=== PATIENT | male | born 1930 | race Caucasian/White ===

== ENCOUNTER 2018-12-03 07:47 | Inpatient (IN) | payer MEDICARE ==
[2018-12-03] VITALS (41 sets, daily range): BP systolic 79–133; BP diastolic 35–63; Ht 170.2 cm; Wt 78.0 kg
[~2018-12-03] VITALS: Ht 170.2 cm; Wt 78.0 kg
[2018-12-03] MEDS ORDERED: FUROSEMIDE20 MG PO (07:58)
[2018-12-03] MEDS ORDERED: LISINOPRIL20 MG PO (07:58)
[2018-12-03] MEDS ORDERED: COUMADIN2 MG PO (07:58)
[2018-12-03] MEDS ORDERED: SIMBRINZA 1%-0.28 ML EACH EYE (07:59)
--- NOTE | 2018-12-03 08:19 | NUR ---
VERBAL ORDER RECEIVED FROM DR. FERNANDO TO TITRATE NOREPI INFUSION TO KEEP MAP ABOVE 65.
--- NOTE | 2018-12-03 08:58 | NUR ---
PT LYING QUIETLY, INTUBATED, ON VENT. P/W/D. VSS. PROPOFOL INFUSING, LR INFUSING ON PRESSURE BAG, NOREPINEPHRINE INFUSING. MAP 75. 1000ML TEA COLORED URINE EMPTIED FROM COLBERT BAG.
[2018-12-03 09:01] LABS: ALBUMIN 2.8 g/dL (3.4-5.0); ALKALINE PHOSPHATASE 272 U/L (46-116); ALT (SGPT) 89 U/L (10-68); BILIRUBIN - TOTAL 1.41 mg/dL (0.2-1.3); CALC OSMOLALITY 287 mosm/kg (275-300); CALCIUM 8.4 mg/dL (8.5-10.1); CARBON DIOXIDE 23.1 mmol/L (21.0-32.0); CHLORIDE - SERUM 102 mmol/L (98-107); CREATININE - SERUM 1.6 mg/dL (0.6-1.3); GLUCOSE 168 mg/dL (74-106); POTASSIUM - SERUM 3.9 mmol/L (3.5-5.1); PROTEIN - SERUM 6.6 g/dL (6.4-8.2); SODIUM 136 mmol/L (136-145); UREA NITROGEN 46 mg/dL (7-18); eGFR NON AFRICAN AMERICAN 43 mL/min (90-120)
[2018-12-03 09:03] LABS: INR 1.83 (0.85-1.17); PROTIME 20.5 SECONDS (11.6-15.0)
[2018-12-03 09:04] LABS: APTT 83.6 SECONDS (22.8-39.4)
[2018-12-03 09:09] LABS: HEMATOCRIT 29.7 % (42.0-54.0); HEMOGLOBIN 10.2 g/dL (13.5-17.5); LYMPHOCYTES 5.9 % (15-50); MCH 29.7 pg (26.0-34.0); MCHC 34.3 g/dL (31.0-37.0); MCV 86.3 fL (80.0-100.0); MEAN PLATELET VOLUME 8.8 fL (7.4-10.4); NEUTROPHILS 86.6 % (40-80); PLATELET COUNT 234 10x3/uL (130-400); RBC 3.44 10x6/uL (4.20-6.10); RDW 13.4 % (11.5-14.5); WBC 15.7 10x3/uL (4.8-10.8)
[2018-12-03 09:19] LABS: CKMB 21.4 U/L (0.0-3.6); CREATINE KINASE 147 UL (21-232)
[2018-12-03 09:21] LABS: TROPONIN-I 4.846 ng/mL (0.000-0.060)
--- NOTE | 2018-12-03 09:27 | NUR ---
LAB CALLED FOR ELEVATED TROPONIN OF 4.846, EDP NOTIFIED. EDP STATES TO CALL DR JOHNSON. DR JOHNSON NOTIFIED.
--- NOTE | 2018-12-03 10:00 | NUR ---
RECEIVED PT FROM ER. HOOKED UP TO MONITOR. LEVOPHED AND DIPRIVAN FOR SEDATION
[2018-12-03 13:33] LABS: APPEARANCE HAZY (CLEAR); BILIRUBIN NEGATIVE (NEGATIVE); COLOR YELLOW (YELLOW); GLUCOSE NEGATIVE (NEGATIVE); KETONE NEGATIVE (NEGATIVE); NITRITE NEGATIVE (NEGATIVE); PROTEIN NEGATIVE (NEGATIVE); UROBILINOGEN NORMAL (NORMAL)
[2018-12-03 13:35] LABS: BACTERIA FEW /hpf (NEGATIVE); EPITHELIAL CELLS OCC /hpf (0-5); MUCUS <1+ /lpf (NONE SEEN); RED CELLS - URINE 25-50 /hpf (0-5); WHITE CELLS - URINE 0-5 /hpf (NEGATIVE)
--- NOTE | 2018-12-03 14:01 | NUR ---
OBTAINED CONSENT FROM PATIENTS DAUGHTER (MAKENNA) FOR PICC LINE INSERTION
--- NOTE | 2018-12-03 16:00 | NUR ---
OBTAINED CONSENT FROM DAUGHTER FOR CENTRAL LINE SINCE PICC LINE COULD NOT BE PLACED. DR. SRINIVASAN CONSULTED. SUPPLIES GATHERED
--- NOTE | 2018-12-03 16:59 | NUR ---
OGT DROPPED. AUSCULTATED PLACEMENT.
--- NOTE | 2018-12-03 17:26 | MORECARE ---
CASE MANAGEMENT DISCHARGE SUMMARY PATIENT: REBECCA FISCHER UNIT: [id number] ADM DATE: 12/03/18 AGE: 88 : [birth year] SEX: M ROOM/BED: D.2305 AUTHOR: ELENA PAINTING PHYSICIAN: REFERRING PHYSICIAN: NOEMI PATTON MD DATE OF SERVICE: 12/03/18 Discharge Plan Patient Name: REBECCA FISCHER [facility] [facility] 1930 Planned Disposition: Anticipated Discharge Date: Discharge Date: Expected LOS: Initial Reviewer: [email or web address] Initial Review Date: 12/03/2018 Generated: 12/03/18 6:25 pm Comments DCP- Discharge Planning Updated by [email or web address]: Lissy Martinez on 12/03/18 4:[address] CM attempted to visit with patient regarding discharge planning/ needs. Patient currently on vent no family available. CM will continue to follow and assist as needed with discharge planning / needs Patient Name: REBECCA FISCHER Page 13869 at 1726 All edits/amendments must be made on the electronic document DICTATION DATE: 12/03/181724 FACTORY HELPER: PATTIE 12/03/181724 RPT#: [id number] DC DATE: STATUS: ADM IN [facility] [address] [place] [address] END OF REPORT
--- NOTE | 2018-12-03 19:30 | NUR ---
DR SRINIVASAN AT BEDSIDE PLACING CENTRAL LINE RIGHT IJ
--- NOTE | 2018-12-03 19:30 | NUR ---
SMILEY INCREASED FOR CENTRAL LINE PLACEMENT PER DR SRINIVASAN VERBAL ORDER
--- NOTE | 2018-12-03 19:40 | NUR ---
RADIOLOGY AT BEDSIDE FOR CHEST XRAY FOR LINE PLACEMENT
--- NOTE | 2018-12-03 20:00 | NUR ---
COMPLETE CHG BATH AND LINEN CHANGE POST CENTRAL LINE PLACEMENT
--- NOTE | 2018-12-03 20:50 | NUR ---
DR SRINIVASAN CALLED STATED CENTRAL LINE IN PLACE AND OK TO USE.
--- NOTE | 2018-12-03 21:20 | NUR ---
ALL IV TUBINGS/BAGS CHANGED WHEN SWITCHING FROM PIV TO NEW RIGHT IJ CENTRAL LINE.
--- NOTE | 2018-12-03 23:00 | NUR ---
REASSESSMENT MADE NO CHANGES REPOSITIONED FOR COMFORT CPOC
[2018-12-04] VITALS (30 sets, daily range): BP systolic 85–148; BP diastolic 36–57
--- NOTE | 2018-12-04 01:00 | NUR ---
REPOSITIONED FOR COMFORT CPOC
--- NOTE | 2018-12-04 03:00 | NUR ---
REASSESSMENT MADE CPOC REPOSITIONED FOR COMFORT PT LIGHTLY SEDATED STILL NODS HEAD AND FOLLOWS COMMANDS
--- NOTE | 2018-12-04 06:00 | NUR ---
AM LABS DRAWN FROM RIGHT IJ CENTRAL LINE. LEVOPHED OFF CPOC
[2018-12-04 06:31] LABS: BASOPHILS 0.1 % (0-2); EOSINOPHILS 0.1 % (0-7); HEMOGLOBIN 8.5 g/dL (13.5-17.5); IMMATURE GRANULOCYTES 0.5 % (0-5); LYMPHOCYTES 9.8 % (15-50); MCH 28.6 pg (26.0-34.0); MEAN PLATELET VOLUME 8.7 fL (7.4-10.4); NEUTROPHILS 85.5 % (40-80); PLATELET COUNT 189 10x3/uL (130-400); RBC 2.97 10x6/uL (4.20-6.10)
[2018-12-04 06:33] LABS: MCV 84.2 fL (80.0-100.0); WBC 7.5 10x3/uL (4.8-10.8)
[2018-12-04 07:15] LABS: ALBUMIN 2.3 g/dL (3.4-5.0); BILIRUBIN - TOTAL 1.06 mg/dL (0.2-1.3); CALCIUM 7.9 mg/dL (8.5-10.1); CARBON DIOXIDE 23.9 mmol/L (21.0-32.0); CREATININE - SERUM 1.5 mg/dL (0.6-1.3); MAGNESIUM - SERUM 1.9 mg/dL (1.8-2.4); PHOSPHOROUS 4.3 mg/dL (2.5-4.9); PROTEIN - SERUM 5.1 g/dL (6.4-8.2); VANCOMYCIN - RANDOM 0.1 ug/mL (10.0-20.0)
[2018-12-04 07:16] LABS: ANION GAP 15.3 mmol/L (8-16); POTASSIUM - SERUM 3.2 mmol/L (3.5-5.1)
[2018-12-04 07:17] LABS: TROPONIN-I 2.553 ng/mL (0.000-0.060)
--- NOTE | 2018-12-04 17:02 | OP ---
PATIENT NAME: REBECCA FISCHER MEDICAL RECORD: [id number] :[birth year] LOCATION:.[facility] D.2305 ADMISSION DATE:12/03/18 SURGEON: CORKY SRINIVASAN MD DATE OF OPERATION: 12/03/2018 PREOPERATIVE DIAGNOSES: 1. Septicemia. 2. Pneumonia. 3. Ventilatory failure requiring mechanical ventilation. POSTOPERATIVE DIAGNOSES: 1. Septicemia. 2. Pneumonia. 3. Ventilatory failure requiring mechanical ventilation. PROCEDURE: Insertion of right internal jugular triple lumen central venous catheter, 16 cm. SURGEON: Corky Srinivasan MD TYPESETTERS PRINTER: None. BLOOD LOSS: Minimal. ANESTHESIA: Local. The entire procedure was performed in the presence of the patient's nurse. OPERATIVE COURSE: The patient was positioned in the Trendelenburg position. The right neck was sterilely prepped and draped. A local anesthetic was used to infiltrate the skin and subcutaneous tissues at the base of right neck. Right internal jugular vein was percutaneously accessed in an antegrade fashion. Guidewire was passed easily. A small skin tania was accomplished. A vessel dilator was used to dilate a subcutaneous tract. A 16-cm triple lumen central venous catheter was inserted in to the hub. It was sutured in place times 2. All lumens flushed easily and aspirated dark, nonpulsatile blood. A stat portable chest x-ray is pending. TRANSINT:[id number] Voice Confirmation ID: [id number] DOCUMENT ID: [id number] CORKY SRINIVASAN MD at 1702 CC: [id number] DICTATION DATE: 12/03/182046 BAR TENDER: 12/04/18 0309 ADM IN [facility] [id number] [place] [address]
[2018-12-05] VITALS (29 sets, daily range): BP systolic 101–149; BP diastolic 38–87
[2018-12-05 06:24] LABS: BASOPHILS 0 % (0-2); EOSINOPHILS 0.1 % (0-7); HEMATOCRIT 23.8 % (42.0-54.0); IMMATURE GRANULOCYTES 0.5 % (0-5); LYMPHOCYTES 8.8 % (15-50); MCH 28.4 pg (26.0-34.0); MCHC 33.6 g/dL (31.0-37.0); MCV 84.4 fL (80.0-100.0); MEAN PLATELET VOLUME 8.9 fL (7.4-10.4); MONOCYTES 3.1 % (2-11); NEUTROPHILS 87.5 % (40-80); PLATELET COUNT 202 10x3/uL (130-400); RBC 2.82 10x6/uL (4.20-6.10); RDW 14.1 % (11.5-14.5); WBC 7.5 10x3/uL (4.8-10.8)
[2018-12-05 06:54] LABS: APTT 44.5 SECONDS (22.8-39.4); INR 2.14 (0.85-1.17); PROTIME 23.3 SECONDS (11.6-15.0)
--- NOTE | 2018-12-05 07:00 | NUR ---
RECEIVED BEDSIDE REPORT ON PATIENT AND ASSUMED CARE. PATIENT AWAKENS TO VOICE, FOLLOWS COMMANDS. VSS. CM - SB RATE 75, SPO2 - 98% ON VENT WIHT 30% FIO2. IVS INFUSING TO RIGHT IJ WITHOUT DIFFICULTY, LR AT 100 CC/HR, FENTANYL AT 1 CC/HR (50 MCG/HR) AND PROPOFOL AT 3.1 CC/HR (8 MCG/KG/MIN). COLBERT CATH IN PLACE WITH YELLOW UOP. PATIENT TURNED AND REPOSITIONED IN BED. HEAD TO TOE ASSESSMENT COMPLETED.
[2018-12-05 07:15] LABS: ANION GAP 11.5 mmol/L (8-16); CALCIUM 7.7 mg/dL (8.5-10.1); CARBON DIOXIDE 25.8 mmol/L (21.0-32.0); CREATININE - SERUM 1.5 mg/dL (0.6-1.3); POTASSIUM - SERUM 3.3 mmol/L (3.5-5.1); VANCOMYCIN - RANDOM 8.1 ug/mL (10.0-20.0)
--- NOTE | 2018-12-05 09:00 | NUR ---
PATIENT TURNED AND REPOSITIONED IN BED. VSS.
--- NOTE | 2018-12-05 11:24 | NUR ---
REASSESSMENT COMPLETE. VSS. TURNED AND REPOSITIONED IN BED.
--- NOTE | 2018-12-05 11:45 | NUR ---
PROPOFOL STOPPED FOR SEDATION VACATION WHILE DOING CPAP TRAILS FOR VENTILATOR WEANING.
--- NOTE | 2018-12-05 13:00 | NUR ---
PATIENT TURNED AND REPOSITIONED. VSS. MEDS GIVEN PER MAR.
--- NOTE | 2018-12-05 14:13 | NUR ---
PATIENT GIVEN COMPLETE CHG BATH AND LINENS CHANGED.
--- NOTE | 2018-12-05 15:00 | NUR ---
REASSESSMENT COMPLETE, VSS. PATIENT TURNED AND REPOSITIONED.
--- NOTE | 2018-12-05 16:03 | NUR ---
BLOOD DRAWN FOR TYPE AND CROSS AND SENT TO LAB.
--- NOTE | 2018-12-05 16:15 | NUR ---
CONTACTED PATIENTS DAUGHTER MAKENNA STONE (C) [phone] AND OBTAINED CONSENT FOR BLOOD TRANSFUSION. UPDATED ON FATHERS CONDITION AND ANSWERED QUESTIONS. (V) [phone].
--- NOTE | 2018-12-05 16:50 | NUR ---
SPOKE TO DR. PICKETT REGARDING PATIENTS EYE GTTS TAKEN FOR HIS GLAUCOMA, STATES OK TO ORDER TO THESE MEDS. ORDER PLACED.
--- NOTE | 2018-12-05 17:04 | NUR ---
TUBEFEEDING AND TUBING CHANGED. PATIENT TURNED AND REPOSITIONED IN BED. VSS.
--- NOTE | 2018-12-05 17:29 | NUR ---
1ST UNIT OF 1 OF PRBC STARTED INFUSING.
--- NOTE | 2018-12-05 18:23 | NUR ---
PATIENT PLACED BACK ON A/C, PROPOFOL RESTARTED AT 8 MCG/KG/MIN (3.1 CC/HR).
--- NOTE | 2018-12-05 19:00 | NUR ---
REPORT RECEIVED. RECEIVED PATIENT IN BED. AWAKE AND ALERT. SEDATED/INTUBATED. ETT INTACT/SECURE/PATENT CONNECTED TO MECHANICAL VENT WITH SETTINGS ORDERED. HOB UP 30 DEGREES. OGT INTACT/SECURE AND PATENT. MONITORS CONNECTED TO PATIENT WITH ALARMS SET. VSS
--- NOTE | 2018-12-05 19:00 | NUR ---
PRBC INFUSION COMPLETED. NO S/S OF TRANSFUSION REACTION.
[2018-12-05 19:59] LABS: HEMATOCRIT 30.3 % (42.0-54.0); HEMOGLOBIN 10.3 g/dL (13.5-17.5)
[2018-12-06] VITALS (22 sets, daily range): BP systolic 120–156; BP diastolic 50–75
--- NOTE | 2018-12-06 05:00 | NUR ---
RESTING WITH EYES CLOSED, ROUSES EASILY AND ALERT. AM LABS DRAWN FROM CVL. VSS
[2018-12-06 05:41] LABS: BASOPHILS 0 % (0-2); EOSINOPHILS 0 % (0-7); HEMATOCRIT 29.7 % (42.0-54.0); IMMATURE GRANULOCYTES 1.4 % (0-5); LYMPHOCYTES 6.5 % (15-50); MCH 28.9 pg (26.0-34.0); MCHC 33.7 g/dL (31.0-37.0); MCV 85.8 fL (80.0-100.0); MEAN PLATELET VOLUME 9.1 fL (7.4-10.4); MONOCYTES 3.2 % (2-11); NEUTROPHILS 88.9 % (40-80); PLATELET COUNT 210 10x3/uL (130-400); RDW 14.4 % (11.5-14.5); WBC 7.7 10x3/uL (4.8-10.8)
[2018-12-06 06:14] LABS: ANION GAP 12.5 mmol/L (8-16); CALCIUM 7.7 mg/dL (8.5-10.1); CARBON DIOXIDE 25.7 mmol/L (21.0-32.0); CREATININE - SERUM 1.5 mg/dL (0.6-1.3); POTASSIUM - SERUM 4.2 mmol/L (3.5-5.1); VANCOMYCIN - RANDOM 10.4 ug/mL (10.0-20.0)
[2018-12-06 06:15] LABS: PHOSPHOROUS 2.8 mg/dL (2.5-4.9); RBC 3.46 10x6/uL (4.20-6.10)
[2018-12-06 06:27] LABS: INR 2.08 (0.85-1.17); PROTIME 22.7 SECONDS (11.6-15.0)
--- NOTE | 2018-12-06 07:00 | NUR ---
report recieved. patient is intubated. no sedation. recieved patient on fentanyl while on cpap trials. patient is calm and cooperative. diprivan off. denies pain. nods yes and no when asked questions. pulses palp bilateral upp and low. murmur heard on ausculation. hob 30. tube feeding at 40.
[2018-12-06 07:07] LABS: APTT 36.7 SECONDS (22.8-39.4)
--- NOTE | 2018-12-06 09:27 | NUR ---
Nutrition follow-up: TF off at this time due to CPAP trials Pulmocare infusing @ 40 ml/hr with increase to goal rate of 45 ml/hr today unless pt extubates. Labs reviewed WT: 169# RDN following.
--- NOTE | 2018-12-06 09:30 | NUR ---
family at bedside. no distress. calm and cooperative. vss.
--- NOTE | 2018-12-06 11:20 | NUR ---
PATIENT IS RESTING. TOLERATING ICE CHIPS WITH NO SIGNS OF ASPIRATION. PATIENT IS DOING INCENTIVE SPIROMETER AT THIS TIME. INSTRUCTED ON DOING IT 10 TIMES IN ONE HOUR. EDUCATED ON FLUTTER VALVE AND THE REASON FOR ICE CHIPS ONLY.
--- NOTE | 2018-12-06 13:20 | NUR ---
FAMILY AT BEDSIDE. AFEBRILE. NO DISTRESS. TOLERATING NASAL CANNULA. NO PAIN. INCENTIVE SPIROMETER BEING DONE AT THIS TIME.
--- NOTE | 2018-12-06 15:45 | NUR ---
SPEECH EVAL AT BEDSIDE.
--- NOTE | 2018-12-06 16:14 | NUR ---
SPEECH EVAL STATED PATIENT TOLERATED THIN LIQUIDS BUT NOT REGULAR DIET.
--- NOTE | 2018-12-06 17:26 | NUR ---
TEGADERM AND GAUZE PUT ON R ARM FOR SKIN TEAR. LOVENOX BEING HELD. HOB 60. ALERT AND ORIENTED. NO BM. NO PAIN. PULSES PALP BILAT UPP AND LOWER. INCENTIVE SPIROMETER BEING DONE. REINFORCED IMPORTANCE OF SPIROMETER AND FLUTTER VALVE. EDUCATED THE SIGNIFICANT OTHER TO CONTINUE THESE BREATHING EXERCISES.
--- NOTE | 2018-12-06 19:00 | NUR ---
SHIFT ASSESSMENT COMPLETE. PT IS A&O X4 WITH NO ACUTE DISTRESS NOTED. S1S2 AUDIBLE, NSR SHOWING ON MONITOR. RR EVEN AND UNLABORED, CLEAR LUNG SOUNDS HEARD THROUGHOUT UPPER AND MIDDLE LOBES, DIMINISHED AT THE BASES. NC ON @ 2L/MIN. ABD ROUND, BS ACTIVE X4. COLBERT CATH INTACT DRAINING YELLOW URINE. R IJ CVL INFUSING LR @ 75 ML/HR. RADIAL AND PEDAL PULSES PALP. REFRESHMENTS BROUGHT TO BEDSIDE. VSS. CALL LIGHT IN REACH, BED IN LOWEST POSITION. WILL CONT WITH POC.
--- NOTE | 2018-12-06 21:00 | NUR ---
PO MEDS TAKEN WITHOUT DIFFICULTY. PT IS ABLE TO REPOSITION INDEPENDENTLY. HE DENIES ANY NEEDS AT THIS TIME. VSS. CALL LIGHT IN REACH. PT IS IN [employer] SPIRITS AND WATCHING TV. WILL CONT WITH POC.
--- NOTE | 2018-12-06 21:34 | MORECARE ---
CASE MANAGEMENT DISCHARGE SUMMARY PATIENT: REBECCA FISCHER UNIT: [id number] ADM DATE: 12/03/18 AGE: 88 : [birth year] SEX: M ROOM/BED: D.2305 AUTHOR: ELENA PAINTING PHYSICIAN: REFERRING PHYSICIAN: NOEMI PATTON MD DATE OF SERVICE: 12/06/18 Discharge Plan Patient Name: REBECCA FISCHER Facility: [facility]:[place] : 1930 Planned Disposition: Home or Self Care Anticipated Discharge Date: Discharge Date: Expected LOS: Initial Reviewer: [email or web address] Initial Review Date: 12/06/2018 Generated: 12/06/18 10:34 pm DCP- Discharge Planning Updated by ERIKA Martinez on 12/03/18 4:[address] CM attempted to visit with patient regarding discharge planning/ needs. Patient currently on vent no family available. CM will continue to follow and assist as needed with discharge planning / needs DCPIA - Discharge Planning Initial Assessment Updated by JUAN: Lissy Martinez on 12/06/18 9:32 pm * Is the patient Alert and Oriented? Yes * How many steps to enter\exit or inside your home? * PCP [facility] * [facility] * Preadmission Environment Home with Family * ADLs Independent * Equipment Nebulizer * Other Equipment CPAP, CANE * List name and contact numbers for known caregivers / representatives who currently or will assist patient after discharge: MARCUS HU - SIGNIFICANT OTHER- [phone] MAKENNA DAUGHTER - [phone] * Verbal permission to speak to the caregivers and representatives has been obtained from the patient. No * Community resources currently utilized None * Additional services required to return to the preadmission environment? No * Can the patient safely return to the preadmission environment? Yes * Has this patient been hospitalized within the prior 30 days at any hospital? No Last DP export: 12/03/18 4:26 p Patient Name: REBECCA FISCHER Page [phone] at 1449 All edits/amendments must be made on the electronic document DICTATION DATE: 12/06/182133 NAIL EXPERT: DM 12/06/182133 RPT#: [id number] DC DATE: STATUS: ADM IN [facility] [address] [place] [address] END OF REPORT
--- NOTE | 2018-12-06 21:41 | MORECARE ---
CASE MANAGEMENT DISCHARGE SUMMARY PATIENT: REBECCA FISCHER UNIT: [id number] ADM DATE: 12/03/18 AGE: 88 : [birth year] SEX: M ROOM/BED: D.2305 AUTHOR: GARIMA,DOC PHYSICIAN: REFERRING PHYSICIAN: NOEMI PATTON MD DATE OF SERVICE: 12/06/18 Discharge Plan Patient Name: REBECCA FISCHER Facility: [facility]:[place] : 1930 Planned Disposition: Home or Self Care Anticipated Discharge Date: Discharge Date: Expected LOS: Initial Reviewer: [email or web address] Initial Review Date: 12/06/2018 Generated: 12/06/18 10:40 pm Comments DCP- Discharge Planning Updated by [email or web address]: Lissy Martinez on 12/06/18 8:[address] Patient Name: REBECCA FISCHER Admission Status: Elective Accout number: [id number] Admission Date: 12-03-2018 : 1930 Admission Diagnosis: Attending: BASIL PATTON Current LOS: 3 Anticipated DC Date: Planned Disposition: Home or Self Care Primary Insurance: MEDICARE A & B Discharge Planning Comments: CM met with patient at bedside after explaining CM role and obtaining verbal consent. Patient lives at home with his significant other Anne where he is independent with his care and plans to return there upon discharge. Patient feels this would be a safe discharge. CM discussed availability / needs of home health and medical equipment. Patient states he has CPAP and Neb[facility]izer [facility] Patient denies any discharge needs at this time. Patient states he will have his family drive him home upon discharge. CM will continue to follow and assist as needed with discharge planning / needs. Low Altitude Air Defense Gunner: Lissy Martinez DCP- Discharge Planning Updated by [email or web address]: Lissy Martinez on 12/03/18 4:[address] CM attempted to visit with patient regarding discharge planning/ needs. Patient currently on vent no family available. CM will continue to follow and assist as needed with discharge planning / needs DCPIA - Discharge Planning Initial Assessment Updated by [email or web address]: Lissy Martinez on 12/06/18 9:32 pm * Is the patient Alert and Oriented? Yes * How many steps to enter\exit or inside your home? * [place] [facility] * Preadmission Environment Home with Family * ADLs Independent * Equipment Nebulizer * Other Equipment CPAP, CANE * List name and contact numbers for known caregivers / representatives who currently or will assist patient after discharge: ANNE HU - SIGNIFICANT OTHER- [phone] MAKENNA - DAUGHTER - [phone] * Verbal permission to speak to the caregivers and representatives has been obtained from the patient. No * Community resources currently utilized None * Additional services required to return to the preadmission environment? No * Can the patient safely return to the preadmission environment? Yes * Has this patient been hospitalized within the prior 30 days at any hospital? No Last DP export: 12/06/18 8:34 p Patient Name: REBECCA FISCHER Page [phone] at 2141 All edits/amendments must be made on the electronic document DICTATION DATE: 12/06/182139 TEST TUBE MAKER: PATTIE 12/06/182139 RPT#: [id number] DC DATE: STATUS: ADM IN [facility] [address] [place] [address] END OF REPORT
--- NOTE | 2018-12-06 23:00 | NUR ---
REASSESSMENT COMPLETE. ASSISTED WITH ADLs. NO CHANGES IN PT CONDIITON. PT REQUESTS FOR TV AND LIGHTS TO BE TURNED OFF. NO FURTHER NEEDS AT THIS TIME. SEE FLOWSHEET FOR FURTHER DETAILS. VSS. WILL CONT WITH POC.
[2018-12-07] VITALS (12 sets, daily range): BP systolic 118–159; BP diastolic 51–89
--- NOTE | 2018-12-07 01:00 | NUR ---
PT RESTING PEACEFULLY WITH NO SIGNS OF ACUTE DISTRESS NOTED. VSS.
--- NOTE | 2018-12-07 03:00 | NUR ---
REASSESSMENTS COMPLETE PER FLOWSHEET. NO CHANGES IN PT CONDITON. VSS. WILL CONT TO MONITOR.
--- NOTE | 2018-12-07 04:00 | NUR ---
COLBERT CARE PROVIDED.
--- NOTE | 2018-12-07 05:00 | NUR ---
PT RESTING WITH NO SIGNS OF ACUTE DISTRESS NOTED. VSS. WILL CONT WITH POC. CALL LIGHT IN REACH, BED IN LOWEST POSITION.
[2018-12-07 05:04] LABS: BASOPHILS 0.1 % (0-2); EOSINOPHILS 0 % (0-7); HEMATOCRIT 28.8 % (42.0-54.0); HEMOGLOBIN 9.7 g/dL (13.5-17.5); IMMATURE GRANULOCYTES 1.1 % (0-5); LYMPHOCYTES 6.5 % (15-50); MCHC 33.7 g/dL (31.0-37.0); MEAN PLATELET VOLUME 8.7 fL (7.4-10.4); MONOCYTES 3.4 % (2-11); NEUTROPHILS 88.9 % (40-80); PLATELET COUNT 212 10x3/uL (130-400); RBC 3.35 10x6/uL (4.20-6.10); RDW 14.3 % (11.5-14.5); WBC 8.8 10x3/uL (4.8-10.8)
[2018-12-07 05:36] LABS: ALBUMIN 2.2 g/dL (3.4-5.0); ANION GAP 10.2 mmol/L (8-16); BILIRUBIN - TOTAL 1.24 mg/dL (0.2-1.3); CALCIUM 7.6 mg/dL (8.5-10.1); CREATININE - SERUM 1.4 mg/dL (0.6-1.3); PHOSPHOROUS 3.1 mg/dL (2.5-4.9); POTASSIUM - SERUM 4.2 mmol/L (3.5-5.1); PROTEIN - SERUM 5.4 g/dL (6.4-8.2); VANCOMYCIN - RANDOM 12.9 ug/mL (10.0-20.0)
--- NOTE | 2018-12-07 07:00 | NUR ---
patient laying in bed. alert and oriented. introduced myself. vss. denies pain and needs. no distress. shift assessment done at this time. 2 l NC. pulses palp bilat. breathing treatments being done. reinforced importance of spirometer and flutter valve.
--- NOTE | 2018-12-07 08:55 | NUR ---
patient denies suicidal thoughts. SRS done.
--- NOTE | 2018-12-07 11:23 | NUR ---
PATIENT IS UP IN CHAIR. TOLERATING WELL.. PATIENT CAN TRANSFER FROM PULMONARY STANDPOINT. AWAITING ON DR BLUNT. ALL LINES LABELED AND CAPPED. VSS. ALERT AND ORIENTED. WILL CONTINUE TO MONITOR.
--- NOTE | 2018-12-07 13:30 | NUR ---
patient up in chair. family at bedside. no distress. patient is alert and oriented. transfer orders are in. patient is persistent with spirometer and flutter valve. vss. watching tv. tolerating diet. will conitnue to monitor him. no BM as of this time.
--- NOTE | 2018-12-07 15:44 | NUR ---
report given to carlos saunders.
--- NOTE | 2018-12-07 15:47 | NUR ---
RECEIVED REPORT FROM KIMO IN ICU, ROOM NOT READY FOR PT AT THIS TIME. WILL HAVE EVS COME AND CLEAN ROOM.
--- NOTE | 2018-12-07 19:51 | NUR ---
REPORT RECIEVED AND ROUNDING COMPLETE. PATIENT LAYING IN BED IN LOW FOWLERS. PATIENT HAS A RIGHT IJ WITH LR RUNNING. IJ HAS NO S/SX OF INFILTRATION OR INFECTION AT THIS TIME. DRESSING IS C/D/I. PATIENT IS WEARING NASAL CANNULA WITH O2 AT 2L. PATIENT IS SHOWING NO S/SX OF DISTRESS AT THIS TIME. PATIENT STATES HE HAS NO NEEDS AT THIS TIME. PATIENT HAS A COLBERT WITH YELLOW CLEAR URINE. CALL LIGHT WITHIN REACH AND BED IN LOWEST LOCKED POSITION.
[2018-12-08 00:02] VITALS: BP 149/56
[2018-12-08 04:00] VITALS: BP 148/79
[2018-12-08 06:40] LABS: ANION GAP 14.8 mmol/L (8-16); CALCIUM 7.7 mg/dL (8.5-10.1); CARBON DIOXIDE 23.4 mmol/L (21.0-32.0); CREATININE - SERUM 1.4 mg/dL (0.6-1.3); POTASSIUM - SERUM 4.2 mmol/L (3.5-5.1); VANCOMYCIN - RANDOM 14.7 ug/mL (10.0-20.0)
[2018-12-08 06:47] LABS: BASOPHILS 0.1 % (0-2); EOSINOPHILS 0 % (0-7); HEMATOCRIT 31.1 % (42.0-54.0); HEMOGLOBIN 10.4 g/dL (13.5-17.5); IMMATURE GRANULOCYTES 2.2 % (0-5); LYMPHOCYTES 6.6 % (15-50); MCH 28.8 pg (26.0-34.0); MCHC 33.4 g/dL (31.0-37.0); MCV 86.1 fL (80.0-100.0); MEAN PLATELET VOLUME 8.9 fL (7.4-10.4); MONOCYTES 3.5 % (2-11); NEUTROPHILS 87.6 % (40-80); PLATELET COUNT 241 10x3/uL (130-400); RBC 3.61 10x6/uL (4.20-6.10); RDW 14.3 % (11.5-14.5)
[2018-12-08 06:49] LABS: WBC 12.6 10x3/uL (4.8-10.8)
--- NOTE | 2018-12-08 08:39 | NUR ---
AM MEDS GIVEN AT THIS TIME. PT IN BED, EATING BREAKFAST, PT A/O X4, RESP EVEN BUT A LITTLE SHALLOW ON 2L NC. RT IJ INFUSING NS AT 75CC/HR. PT DENIES ANY NEEDS AT THIS TIME, CALL LIGHT IN REACH, NAD NOTED, WILL CONTINUE TO MONITOR.
[2018-12-08 08:45] VITALS: BP 133/48
--- NOTE | 2018-12-08 10:30 | NUR ---
HELPED PT TO BEDSIDE COMMODE WITH MODERATE ASSIST.
[2018-12-08 11:45] VITALS: BP 160/58
--- NOTE | 2018-12-08 12:27 | NUR ---
PT UP TO CHAIR FOR LUNCH, PT DID WELL TRANSFERING FROM BED TO CHAIR. PT DENIES ANY NEEDS AT THIS TIME. CALL LIGHT IN REACH, NAD NOTED, WILL CONTINUE TO MONITOR.
--- NOTE | 2018-12-08 16:00 | NUR ---
PT DOES NOT MEET CRITIRIA TO HAVE COLBERT CATHETER. REMOVED COLBERT CATHETER WITH CATHETER TIP INTACT. REMOVED 10CC OF FLUID FROM BALLOON. ALSO PROVIDED DRESSING CHANGE TO RT IJ CENTRAL LINE, USING STERILE TECHNIQUE. PT UP TO CHAIR, DENIES ANY NEEDS AT THIS TIME. CALL LIGHT IN REACH, NAD NOTED, WILL CONTINUE TO MONITOR.
[2018-12-08 16:37] VITALS: BP 156/54
--- NOTE | 2018-12-08 19:30 | NUR ---
PT ALERT, SITTING IN CHAIR @ BEDSIDE WATCHING TV, RIGHT IJ CVL INTACT WITH LR @ 50CC/HR, URINAL IN REACH, PT VOIDING WITHOUT DIFFICULTY, EDEMA NOTED TO BLE, NO C/O @ THIS TIME
[2018-12-08 20:00] VITALS: BP 132/63
[2018-12-09] VITALS: BP 173/61
--- NOTE | 2018-12-09 04:10 | NUR ---
PT SLEEPING, AM LABS DRAWN FROM RIGHT IJ CVL
[2018-12-09 04:21] LABS: BASOPHILS 0 % (0-2); EOSINOPHILS 0.5 % (0-7); HEMATOCRIT 28.9 % (42.0-54.0); HEMOGLOBIN 9.9 g/dL (13.5-17.5); IMMATURE GRANULOCYTES 1.7 % (0-5); LYMPHOCYTES 10.3 % (15-50); MCH 29.4 pg (26.0-34.0); MCHC 34.3 g/dL (31.0-37.0); MCV 85.8 fL (80.0-100.0); MEAN PLATELET VOLUME 8.4 fL (7.4-10.4); MONOCYTES 4.2 % (2-11); NEUTROPHILS 83.3 % (40-80); PLATELET COUNT 193 10x3/uL (130-400); RBC 3.37 10x6/uL (4.20-6.10); RDW 14.2 % (11.5-14.5); WBC 11.6 10x3/uL (4.8-10.8)
[2018-12-09 04:52] LABS: ANION GAP 10.3 mmol/L (8-16); CALCIUM 7.3 mg/dL (8.5-10.1); CARBON DIOXIDE 26.7 mmol/L (21.0-32.0); CREATININE - SERUM 1.3 mg/dL (0.6-1.3); VANCOMYCIN - RANDOM 15.7 ug/mL (10.0-20.0)
[2018-12-09 04:55] LABS: INR 1.41 (0.85-1.17); PROTIME 16.6 SECONDS (11.6-15.0)
--- NOTE | 2018-12-09 07:37 | NUR ---
REPORT RECIEVED. PT SITTING UP IN BED. HE HAS A R IJ INFUSING LR @ 75. HES CURRENTLY WEARING 2L NC. RR EVEN AND UNLABORED. BED LOCKED AND IN LOWEST POSITION CALL LIGHT WITHIN REACH. WILL CTM
[2018-12-09 08:34] VITALS: BP 144/53
[2018-12-09 12:30] VITALS: BP 149/51
[2018-12-09 16:50] VITALS: BP 141/49
[2018-12-09 20:00] VITALS: BP 138/49
[2018-12-10] VITALS: BP 134/42
[2018-12-10 04:00] VITALS: BP 148/53
[2018-12-10 06:26] LABS: INR 1.27 (0.85-1.17); PROTIME 15.3 SECONDS (11.6-15.0)
[2018-12-10 06:35] LABS: ANION GAP 10.5 mmol/L (8-16); CALCIUM 7.8 mg/dL (8.5-10.1); CARBON DIOXIDE 26.6 mmol/L (21.0-32.0); CREATININE - SERUM 1.2 mg/dL (0.6-1.3); POTASSIUM - SERUM 4.1 mmol/L (3.5-5.1)
--- NOTE | 2018-12-10 06:48 | NUR ---
I have reviewed this patient and I concur with the Shift Assessment completed by the Licensed Practical Nurse today this shift.
[2018-12-10 06:53] LABS: BASOPHILS 0 % (0-2); EOSINOPHILS 0.5 % (0-7); HEMATOCRIT 28.5 % (42.0-54.0); HEMOGLOBIN 9.3 g/dL (13.5-17.5); IMMATURE GRANULOCYTES 1.6 % (0-5); LYMPHOCYTES 9.1 % (15-50); MCH 29.2 pg (26.0-34.0); MCHC 32.6 g/dL (31.0-37.0); MEAN PLATELET VOLUME 8.9 fL (7.4-10.4); MONOCYTES 5.7 % (2-11); NEUTROPHILS 83.1 % (40-80); PLATELET COUNT 201 10x3/uL (130-400); RBC 3.18 10x6/uL (4.20-6.10); RDW 14.7 % (11.5-14.5); WBC 9.4 10x3/uL (4.8-10.8)
[2018-12-10 06:54] LABS: MCV 89.6 fL (80.0-100.0)
--- NOTE | 2018-12-10 07:55 | NUR ---
REPORT RECIEVED. PT SITTING UP IN BED GETTING AN UPDRAFT TREATMENT AT THIS TIME. RR EVEN AND UNLABORED. HE HAS A R IJ CVL THAT IS SL. HE IS A & O. BED LOCKED AND IN LOWEST POSITION. CALL LIGHT WITHIN REACH. WILL CTM
[2018-12-10 08:03] VITALS: BP 156/45
[2018-12-10] MEDS ORDERED: PREDNISONE20 MG PO (10:19)
[2018-12-10 11:55] VITALS: BP 147/45
--- NOTE | 2018-12-10 13:47 | NUR ---
Nutrition Follow-up: Pt reports overall good/fair appetite/PO intake. Drinking ~3 Ensure/day. Per ST, upgraded to solids with thin liquids. Noted plan to d/c today. Diet: Regular, Ensure with meals PO intake: 75-100% Wt: 172# Last BM: 12/10 Labs reviewed Meds reviewed RD following.
--- NOTE | 2018-12-10 13:55 | NUR ---
DC PAPERWORK GONE OVER AND SIGNED WITH PT. ALL QUESTIONS ANSWERED. TELEMETRY REMOVED AND RETURNED TO TO EFFICIENCY MANAGER. CVL PULLED BY NADIA BRICENO. PT HAS LAID FLAT FOR 20 MINS FOLLOWING REMOVAL. NO S/SX OF BLEEDING. PT ESCORTED TO FRONT ENTRANCE VIA WHEELCHAIR WITH . ALL VALUBLES TAKEN OUT OF ROOM
--- NOTE | 2018-12-10 14:47 | MORECARE ---
CASE MANAGEMENT DISCHARGE SUMMARY PATIENT: REBECCA FISCHER UNIT: [id number] ADM DATE: 12/03/18 AGE: 88 : [birth year] SEX: M ROOM/BED: D.2134 AUTHOR: GARIMADOC PHYSICIAN: REFERRING PHYSICIAN: NOEMI PATTON MD DATE OF SERVICE: 12/10/18 Discharge Plan Patient Name: REBECCA FISCHER [facility] [facility] 1930 Planned Disposition: Home or Self Care Anticipated Discharge Date: Discharge Date: 12/10/2018 Expected LOS: Initial Reviewer: [email or web address] Initial Review Date: 12/06/2018 Generated: 12/10/18 3:46 pm DCP- Discharge Planning Updated by [email or web address]: Lissy Martinez on 12/06/18 8:[address] Patient Name: REBECCA FISCHER Admission Status: Elective Accout number: [id number] Admission Date: 12-03-2018 : 1930 Admission Diagnosis: Attending: BASIL PATTON Current LOS: 3 Anticipated DC Date: Planned Disposition: Home or Self Care Primary Insurance: MEDICARE A & B Discharge Planning Comments: CM met with patient at bedside after explaining CM role and obtaining verbal consent. Patient lives at home with his significant other Anne where he is independent with his care and plans to return there upon discharge. Patient feels this would be a safe discharge. CM discussed availability / needs of home health and medical equipment. Patient states he has CPAP and Nebulizer [facility] Patient denies any discharge needs at this time. Patient states he will have his family drive him home upon discharge. CM will continue to follow and assist as needed with discharge planning / needs. Mortgage Specialist: Lissy Martinez DCP- Discharge Planning Updated by [email or web address]: Lissy Martinez on 12/03/18 4:[address] CM attempted to visit with patient regarding discharge planning/ needs. Patient currently on vent no family available. CM will continue to follow and assist as needed with discharge planning / needs DCPIA - Discharge Planning Initial Assessment Updated by [email or web address]: Lissy Martinez on 12/06/18 9:32 pm * Is the patient Alert and Oriented? Yes * How many steps to enter\exit or inside your home? * [facility] * Preadmission Environment Home with Family * ADLs Independent * Equipment Nebulizer * Other Equipment CPAP, CANE * List name and contact numbers for known caregivers / representatives who currently or will assist patient after discharge: ANNE HU - SIGNIFICANT OTHER- [phone] MAKENNA FITZGERALD - [phone] * Verbal permission to speak to the caregivers and representatives has been obtained from the patient. No * Community resources currently utilized None * Additional services required to return to the preadmission environment? No * Can the patient safely return to the preadmission environment? Yes * Has this patient been hospitalized within the prior 30 days at any hospital? No Coverage Notice Reviewer: [email or web address] Josue Vail Notice Issued Date-Time: 12/10/2018 11:33 Notice Type: IM Discharge Notice Notice Delivered To: Patient Relationship to Patient: Spool Maker Name: Delivery Method: HAND - Hand Delivered Misa Days: Prior Verbal Notification: Recipient Understood Notice: Yes Recipient Signature: Yes Med Rec Note Co-signed by Attending: Coverage Notice Comment: Last DP export: 12/06/18 8:40 p Patient Name: REBECCA FISCHER Page [id number] at 1447 All edits/amendments must be made on the electronic document DICTATION DATE: 12/10/181445 FILLER BLOCK INSERTER REMOVER: PATTIE 12/10/181445 RPT#: [id number] DC DATE:12/10/18 STATUS: DIS IN [facility] [address] [place] [address] END OF REPORT
== END 2018-12-10 14:38 | disposition home or self-care (01) | DRG 208 ==
LOC: D.ER 07:47 → D.ICU 08:31 → D.M2 12-07 15:45
PROVIDERS: Family Medicine; Internal Medicine Nephrology; Internal Medicine Pulmonary Disease; ADMIT Emergency Medicine; ATTEND Emergency Medicine
PROC: 5A1945Z Respiratory Ventilation, 24-96 Consecutive Hours (ICD-10-PCS; principal; 2018-12-03)
PROC: 05HM33Z Insertion of Infusion Device into Right Internal Jugular Vein, Percutaneous Approach (ICD-10-PCS; 2018-12-03)
PROC: 05HY33Z Insertion of Infusion Device into Upper Vein, Percutaneous Approach (ICD-10-PCS; 2018-12-03)
DX: J96.01 Acute respiratory failure with hypoxia (principal); A41.9 Sepsis, unspecified organism; R65.21 Severe sepsis with septic shock; I50.33 Acute on chronic diastolic (congestive) heart failure; I21.4 Non-ST elevation (NSTEMI) myocardial infarction; J15.6 Pneumonia due to other Gram-negative bacteria; K72.00 Acute and subacute hepatic failure without coma; I13.0 Hypertensive heart and chronic kidney disease with heart failure and stage 1 through stage 4 chronic kidney disease, or unspecified chronic kidney disease; J44.1 Chronic obstructive pulmonary disease with (acute) exacerbation; J44.0 Chronic obstructive pulmonary disease with (acute) lower respiratory infection; E03.9 Hypothyroidism, unspecified; M19.90 Unspecified osteoarthritis, unspecified site; E87.6 Hypokalemia; N18.3 Chronic kidney disease, stage 3 (moderate)